=== PATIENT | female | born 1930 | race Caucasian/White ===

== ENCOUNTER 2017-05-05 17:33 | Emergency (ER) | payer OTHER ==
[~2017-05-05] VITALS: Ht 147.3 cm; Wt 62.1 kg
[~2017-05-05 17:33] MED LIST: ACETAMINOPHEN325 M1 PO; ASPIR 8181 MG PO; MACROBID 100 M100 M1 PO; MAXZIDE 75-501 EACH PO; POTASSIUM20 PO; ULTRA-LIGHT RO1 EACH MC
[2017-05-05] MEDS ORDERED: ACETAMINOPHEN-1 EAC1 PO (19:48)
== END 2017-05-05 19:28 | disposition home or self-care (01) ==
LOC: ER 17:33
DX: S02.2XXA Fracture of nasal bones, initial encounter for closed fracture (principal); S63.602A Unspecified sprain of left thumb, initial encounter; I10 Essential (primary) hypertension; Z87.440 Personal history of urinary (tract) infections; Z90.49 Acquired absence of other specified parts of digestive tract; Z87.891 Personal history of nicotine dependence; W18.30XA Fall on same level, unspecified, initial encounter; Y93.89 Activity, other specified; Y92.511 Restaurant or cafe as the place of occurrence of the external cause; Y99.8 Other external cause status

== ENCOUNTER 2017-12-25 13:16 | Emergency (ER) | payer OTHER ==
[~2017-12-25] VITALS: Ht 144.8 cm; Wt 59.0 kg
[~2017-12-25 13:16] MED LIST changes: +ACETAMINOPHEN-1 EAC1 PO
[2017-12-25] MEDS ORDERED: ALLEGRA ALLERG180 MG PO (14:30)
[2017-12-25] MEDS ORDERED: ULTRAM 50MG TAB50 MG PO (16:26)
[2017-12-25 17:47] VITALS: BP 152/75
== END 2017-12-25 17:48 | disposition home or self-care (01) ==
LOC: ER 13:16
DX: R07.81 Pleurodynia (principal); I10 Essential (primary) hypertension; Z90.49 Acquired absence of other specified parts of digestive tract; Z87.891 Personal history of nicotine dependence

== ENCOUNTER 2018-02-19 14:03 | Emergency (ER) | payer OTHER ==
[~2018-02-19] VITALS: Ht 142.2 cm; Wt 49.9 kg
--- NOTE | ~2018-02-19 | EKG ---
[place] [address] [facility] [place] [address] ELECTROCARDIOGRAM REPORT Name: JULIANNE CASIANO [facility] [id number] Admission: 02/19/18 Attend Phys: Discharge: 02/19/18 Date of : 30 Report #: [id number] THIS REPORT FOR: //name// [facility] ED Test Date: 2018-02-19 Test Time: 14:19:58 Pat Name: JULIANNE CASIANO Department: Room: Gender: F Medical Insurance Coding Specialist: JAY : 1930 Requested By: Enma Ochoa Order Number: [id number] MD: Alexandru Mosley Measurements Intervals [place] Rate: 98 P: 71 MN: 148 QRS: -59 QRSD: 104 T: 30 QT: 378 QTc: 483 Interpretive Statements Sinus rhythm LAFB Borderline prolonged QT interval Compared to ECG 08/18/2016 18:26:51 QT interval has lengthened Electronically Signed On 02-19-2018 17:19:46 CDT by Alexandru Mosley [email or web address] <ELECTRONICALLY SIGNED> By: Alexandru Mosley MD, [facility] 02/19/18 1719 1419 141 Alexandru Mosley MD, FACC /EPI
[~2018-02-19 14:03] MED LIST changes: +ALLEGRA ALLERG180 MG PO; +ULTRAM 50MG TAB50 MG PO
[2018-02-19] MEDS ORDERED: GABAPENTIN 100100 MG PO (14:13)
[2018-02-19] MEDS ORDERED: KLOR-CON 1010 MEQ PO (14:15)
[2018-02-19 15:04] LABS: ABSOLUTE NEUTROPHILS 16.1 thou/uL (1.4-8.2); BASOPHILS 0.4 % (0.0-2.0); EOSINOPHILS 0.4 % (0.0-3.0); HEMATOCRIT 32.5 % (37.0-47.0); HEMOGLOBIN 10.5 gm/dL (12.0-15.0); LYMPHOCYTES 3.7 % (24.0-44.0); MCH 28.7 pg (26.0-34.0); MCHC 32.3 g/dL (28.0-37.0); MCV 88.8 fL (80.0-100.0); MONOCYTES 5.3 % (1.0-8.0); PLATELET COUNT 375 thou/uL (150-400); POLYS 90.2 % (36.0-66.0); RBC 3.66 mil/uL (4.20-5.00); RDW 14.9 % (10.5-14.5); WBC 17.9 thou/uL (4.0-11.0)
[2018-02-19 15:13] LABS: CALCIUM 8.9 mg/dL (8.5-10.1)
[2018-02-19 15:22] LABS: TROPONIN-I 0.33 ng/mL (<0.06)
[2018-02-19 16:10] LABS: ALBUMIN 2.5 g/dL (3.4-5.0); DIRECT BILIRUBIN 0.2 mg/dL (<0.1-0.3); TOTAL BILIRUBIN 0.5 mg/dL (<0.1-1.0); TOTAL PROTEIN 6.2 g/dL (6.4-8.2)
== END 2018-02-19 17:15 | disposition short-term general hospital (02) ==
LOC: ER 14:03
PROVIDERS: Emergency Medicine
DX: I60.9 Nontraumatic subarachnoid hemorrhage, unspecified (principal); N17.9 Acute kidney failure, unspecified; D64.9 Anemia, unspecified; S01.81XA Laceration without foreign body of other part of head, initial encounter; M25.512 Pain in left shoulder; D72.829 Elevated white blood cell count, unspecified; R79.89 Other specified abnormal findings of blood chemistry; I10 Essential (primary) hypertension; Z87.440 Personal history of urinary (tract) infections; Z90.49 Acquired absence of other specified parts of digestive tract; Z87.891 Personal history of nicotine dependence; W18.39XA Other fall on same level, initial encounter; Y93.89 Activity, other specified; Y92.091 Bathroom in other non-institutional residence as the place of occurrence of the external cause; Y99.8 Other external cause status